=== PATIENT | male | born 1950 | race Caucasian/White ===

== ENCOUNTER 2018-08-01 10:41 | Day surgery (SDC) | payer OTHER ==
[~2018-08-01 10:41] MED LIST: Lactated Ringers 1,000 ML IV SCH
--- NOTE | 2018-08-01 11:51 | PCM.PREANE ---
Preanesthetic Assessment - Anesthesia/Transfusion/Family Hx Anesthesia History: Prior Anesthesia Without Reaction Family History of Anesthesia Reaction: No Transfusion History: No Prior Transfusion(s) - Review of Systems General: No Symptoms Pulmonary: No Symptoms Cardiovascular: No Symptoms Gastrointestinal: No Symptoms Neurological: No Symptoms Other: Reports: None - Physical Assessment NPO Status Date: 08/01/18 NPO Status Time: 10:00 O2 Sat by Pulse Oximetry: 98 Respiratory Rate: 18 Vital Signs: Last Vital Signs Temp 97.0 F 08/01/18 11:05 Pulse 95 08/01/18 11:05 Resp 18 08/01/18 11:05 BP 162/91 H 08/01/18 11:05 Pulse Ox 98 08/01/18 11:05 Height: 5 ft 7 in Weight: 69.853 kg ASA Class: 2 Mental Status: Alert & Oriented x3 Airway Class: Mallampati = 2 Dentition: Reports: Edentulous ROM/Head Extension: Full Lungs: Clear to Auscultation, Normal Respiratory Effort Cardiovascular: Regular Rate, Regular Rhythm - Allergies Allergies/Adverse Reactions: Allergies Allergy/AdvReac Type Severity Reaction Status Date / Time Penicillins Allergy Rash Verified 07/29/18 08:28 - Blood Blood Available: No - Anesthesia Plan Pre-Op Medication Ordered: None - Acknowledgements Anesthesia Type Planned: MAC Pt an Appropriate Candidate for the Planned Anesthesia: Yes Alternatives and Risks of Anesthesia Discussed w Pt/Guardian: Yes Pt/Guardian Understands and Agrees with Anesthesia Plan: Yes PreAnesthesia Questionnaire HEENT History: Reports: Other (See Below) Other HEENT History: wears glasses, has top and bottom dentures Cardiovascular History: Reports: High Cholesterol Respiratory History: Reports: COPD, Pneumothorax Gastrointestinal History: Reports: Colon Polyp, GERD Genitourinary History: Reports: Other (See Below) Other Genitourinary History: hx of bladder cancer Musculoskeletal History: Reports: Arthritis, Back Pain, Chronic Neurological History: Reports: Other (See Below) Other Neuro History: nerve pain to lower extremities Endocrine/Metabolic History: Reports: None Oncologic (Cancer) History: Reports: Bladder - Past Surgical History Head Surgeries/Procedures: Reports: None HEENT Surgical History: Reports: Tonsillectomy Respiratory Surgical History: Reports: Lung Resection Other Respiratory Surgeries/Procedures: had spontaneous pneumothroax in 1970 and had rt lobectomy GI Surgical History: Reports: Colonoscopy Male Surgical History: Reports: TURBT-Transurethral Resection of Bladder Tumor Musculoskeletal Surgical History: Reports: Other (See Below) Other Musculoskeletal Surgeries/Procedures:: hx rt knee surgery - SUBSTANCE USE Smoking Status *Q: Former Smoker Recreational Drug Use History: No - HOME MEDS Home Medications: Home Meds Albuterol Sulfate [Proair Hfa] 2 puff INH Q4H PRN 07/29/18 [History] Cyclobenzaprine HCl 10 mg PO ASDIRECTED PRN 07/29/18 [History] Desonide 1 applic TOP ASDIRECTED PRN 07/29/18 [History] Docusate Sodium [Docu Liquid] 1 dose PO ASDIRECTED PRN 07/29/18 [History] Gabapentin [Neurontin] 300 mg PO TID 07/29/18 [History] Hydrocodone/Acetaminophen [Hydrocodon-Acetaminophn 10-325] 1 tab PO ASDIRECTED PRN 07/29/18 [History] Ketoconazole [Nizoral 2% Shampoo] 1 applic TOP ASDIRECTED PRN 07/29/18 [History] Omeprazole 20 mg PO DAILY 07/29/18 [History] atorvaSTATin Calcium [Atorvastatin Calcium] 40 mg PO DAILY 07/29/18 [History] traZODone HCl [Trazodone HCl] 100 mg PO BEDTIME PRN 07/29/18 [History] - CURRENT (IN HOUSE) MEDS Current Meds: Current Medications Lactated Ringer's (Ringers, Lactated) 1,000 mls @ 125 mls/hr IV ASDIRECTED A[facility]INE Last Admin: 08/01/18 11:10 Dose: 125 mls/hr
[2018-08-01] MEDS ORDERED: Propofol 200 MG/20 ML SDV ONE ×2 (13:21→14:24)
--- NOTE | 2018-08-01 14:43 | PCM.OPNOTE ---
- General Post-Op/Procedure Note Date of Surgery/Procedure: 08/01/18 Operative Procedure(s): colonoscopy w snare polypectomy Findings: see dict [id number] Pre Op Diagnosis: hx of colon polyp Post-Op Diagnosis: Same Anesthesia Technique: Moderate Sedation Primary Surgeon: Boston Phillips Pathology: 5 mm sessile polyp snare at dist 30 cm when scope withdrawal Complications: None Condition: Good
--- NOTE | 2018-08-01 14:49 | PCM.POSTAN ---
POST ANESTHESIA ASSESSMENT - MENTAL STATUS Mental Status: Alert, Oriented - RESPIRATORY Respiratory Status: Respiratory Rate WNL, Airway Patent, O2 Saturation Stable - CARDIOVASCULAR CV Status: Pulse Rate WNL, Blood Pressure Stable - GASTROINTESTINAL GI Status: No Symptoms - POST OP HYDRATION Hydration Status: Adequate & Stable
--- NOTE | 2018-08-01 15:09 | PCM48HPAN ---
Post Anesthesia Note - EVALUATION WITHIN 48HRS OF ANESTHETIC Vital Signs in Normal Range: Yes Patient Participated in Evaluation: Yes Respiratory Function Stable: Yes Airway Patent: Yes Cardiovascular Function Stable: Yes Hydration Status Stable: Yes Pain Control Satisfactory: Yes Nausea and Vomiting Control Satisfactory: Yes Mental Status Recovered: Yes Resp Rate: 16
--- NOTE | 2018-08-01 15:40 | OR ---
SURGEON: Boston Phillips MD DATE OF PROCEDURE: 08/01/2018 PREOPERATIVE DIAGNOSIS: History of colon polyp. POSTOPERATIVE DIAGNOSIS: Colon polyp. PROCEDURE PERFORMED: Colonoscopy with snare polypectomy. PROCEDURE IN DETAIL: The patient was taken to the endoscopy room. A time out was called, patient identified, and procedure identified. Diprivan was then administrated. Patient went from awake to sleep, hearing doctor talking or door closing is normal. Perineum inspection and digital examination were then performed. A well- lubricated colonoscope was gently inserted through the rectum, advanced past the rectosigmoid junction, the descending colon, splenic flexure, transverse colon, hepatic flexure, ascending colon, arrived to the cecum. Cecum was identified as dictated in the finding. Then the scope was carefully withdrawn while attention was paid to the mucosal surface for any abnormality. Air will be sucked out during the scope withdrawal. At the rectum, retroflexed to examine any rectal diseases, fistula or hemorrhoids. During mucosal examination, abnormality or polyp encountered. Using snare equipment, the abnormality or the polyp was then snared off using electrocautery. The Patient tolerated procedure well. There were no intraoperative complications, and Dr. Phillips was present throughout the whole procedure. FINDINGS: 1. The patient is easily sedated with RAWHIDE BONE ROLLER and Diprivan, the patient is soundly snoring. 2. Bowel prep is left to be desirable, marginally acceptable. Large amount of liquid stool and a little bit of semi-formed stool, so this is a very compromised study and the patient would benefit from repeat colonoscopy, may be 2 to 3 years from today because of the poor bowel prep. 3. Colon rather straight forward. Cecum indicated by ileocecal fold, one-to- one indentation, light emittance. Appendiceal orifice is not observed. Mucosa examined upon scope pulling out with a lot of irrigation as there is some semi-formed stool. The patient had 2 small polyps, less than 5 mm at around 30 cm when the scope came out and both of them around 4 to 5 mm, very small, and snare polypectomy, but the specimen was lost during transport, so there was no specimen. The patient also had internal hemorrhoids. No external hemorrhoids. The patient would benefit from repeat colonoscopy in 2 to 3 years from today because of the polyp as well as the poor bowel prep. The patient needs to do a little bit better on the bowel prep next time. PEARL / MODL /[id number]
== END 2018-08-01 15:25 | disposition home or self-care (01) ==
LOC: MW.SDS 10:41
PROVIDERS: ATTEND Surgery
DX: Z12.11 Encounter for screening for malignant neoplasm of colon (principal); K63.5 Polyp of colon; K64.8 Other hemorrhoids; J44.9 Chronic obstructive pulmonary disease, unspecified; M19.90 Unspecified osteoarthritis, unspecified site; E78.00 Pure hypercholesterolemia, unspecified; Z86.010 Personal history of colon polyps; Z87.891 Personal history of nicotine dependence; Z79.899 Other long term (current) drug therapy
CPT/HCPCS: 45385; J2704; J7120

== ENCOUNTER 2020-10-12 06:59 | Day surgery (SDC) | payer OTHER, MEDICARE ==
[2020-10-12] MEDS ORDERED: Lidocaine 2% 5 ML SDV ONE (07:04)
[2020-10-12] MEDS ORDERED: Propofol 200 MG/20 ML SDV ONE (07:04)
--- NOTE | 2020-10-12 08:33 | PCM.PREANE ---
Preanesthetic Assessment - Anesthesia/Transfusion/Family Hx Anesthesia History: Prior Anesthesia Without Reaction Transfusion History: No Prior Transfusion(s) - Review of Systems General: No Symptoms Pulmonary: No Symptoms Cardiovascular: No Symptoms Gastrointestinal: No Symptoms Neurological: No Symptoms Other: Reports: None - Physical Assessment NPO Status Date: 10/12/20 NPO Status Time: 00:01 Vital Signs: Last Vital Signs Temp 97.2 F 10/12/20 08:06 Pulse 70 10/12/20 08:06 Resp 15 10/12/20 08:06 BP 148/98 H 10/12/20 08:06 Pulse Ox 97 10/12/20 08:06 Height: 5 ft 7 in Weight: 140 lb ASA Class: 2 Mental Status: Alert & Oriented x3 Dentition: Reports: Normal Dentition, Dentures ROM/Head Extension: Limited/Partial Lungs: Clear to Auscultation, Normal Respiratory Effort Cardiovascular: Regular Rate, Regular Rhythm - Lab Values: Laboratory Last Values SARS-CoV-2 RNA ([facility]) NEGATIVE (NEGATIVE) 10/12/20 07:10 - Allergies Allergies/Adverse Reactions: Allergies Allergy/AdvReac Type Severity Reaction Status Date / Time Penicillins Allergy Rash Verified 10/06/20 09:43 - Anesthesia Plan Pre-Op Medication Ordered: None - Acknowledgements Anesthesia Type Planned: General Anesthesia Pt an Appropriate Candidate for the Planned Anesthesia: Yes Alternatives and Risks of Anesthesia Discussed w Pt/Guardian: Yes Pt/Guardian Understands and Agrees with Anesthesia Plan: Yes Additional Comments: npo tob quit 2007 copd daily inhalers etoh hx abuse only drinks 2-3 times a month bladder CA yelena pneumothorax 1970 no lung surgery bmi 22 par no questions ca prostate no tx PreAnesthesia Questionnaire HEENT History: Reports: Other (See Below) Other HEENT History: wears glasses, has top and bottom dentures Cardiovascular History: Reports: High Cholesterol Respiratory History: Reports: COPD, Pneumothorax Gastrointestinal History: Reports: Colon Polyp, GERD Genitourinary History: Reports: Other (See Below) Other Genitourinary History: hx of bladder cancer Musculoskeletal History: Reports: Arthritis, Back Pain, Chronic Neurological History: Reports: Other (See Below) Other Neuro History: nerve pain to lower extremities Psychiatric History: Reports: None Endocrine/Metabolic History: Reports: None Hematologic History: Reports: None Immunologic History: Reports: None Oncologic (Cancer) History: Reports: Basal Cell Carcinoma, Bladder Other Oncologic History: basal cell removed from cheek, hx bladder cancer Dermatologic History: Reports: None - Past Surgical History Head Surgeries/Procedures: Reports: None HEENT Surgical History: Reports: Tonsillectomy Cardiovascular Surgical History: Reports: None Respiratory Surgical History: Reports: Lung Resection Other Respiratory Surgeries/Procedures: had spontaneous pneumothroax in 1970 and had rt lobectomy GI Surgical History: Reports: Colonoscopy Male Surgical History: Reports: TURBT-Transurethral Resection of Bladder Tumor Endocrine Surgical History: Reports: None Neurological Surgical History: Reports: None Musculoskeletal Surgical History: Reports: Other (See Below) Other Musculoskeletal Surgeries/Procedures:: hx rt knee surgery for tendon repair Oncologic Surgical History: Reports: None Dermatological Surgical History: Reports: Skin Biopsy - SUBSTANCE USE Tobacco Use Status *Q: Former Tobacco User Tobacco Use Within Last Twelve Months: No - HOME MEDS Home Medications: Home Meds Albuterol Sulfate [Proair Hfa] 2 puff INH Q4H PRN 07/29/18 [History] Gabapentin [Neurontin] 300 mg PO TID 07/29/18 [History] Omeprazole 20 mg PO DAILY 07/29/18 [History] atorvaSTATin Calcium [Atorvastatin Calcium] 20 mg PO DAILY 07/29/18 [History] traZODone HCl [Trazodone HCl] 100 mg PO BEDTIME PRN 07/29/18 [History] Hydrocodone/Acetaminophen [Hydrocodone-Acetamin 10-325 mg] 1 tab PO QID PRN 10/06/20 [History] - CURRENT (IN HOUSE) MEDS Current Meds: Current Medications Lactated Ringer's (Ringers, Lactated) 1,000 mls @ 125 mls/hr IV ASDIRECTED [facility] Last Admin: 10/12/20 08:15 Dose: 125 mls/hr Documented by: Discontinued Medications Lidocaine (Lidocaine 2% 5 Ml Sdv) Confirm Administered Dose 5 ml .ROUTE .STK-MED ONE Stop: 10/12/20 07:05 Propofol (Propofol 200 Mg/20 Ml Sdv) Confirm Administered Dose 400 mg .ROUTE .STK-MED ONE Stop: 10/12/20 07:05
--- NOTE | 2020-10-12 09:29 | PCM.OPNOTE ---
- General Post-Op/Procedure Note Date of Surgery/Procedure: 10/12/20 Operative Procedure(s): colonoscopy w snare Findings: see [id number] Pre Op Diagnosis: colon polyp Post-Op Diagnosis: Same Anesthesia Technique: Moderate Sedation Primary Surgeon: Boston Phillips Pathology: 7mm sessile polyp at 120cm when scope went in, likely at splenic flexure. Complications: None Condition: Good
--- NOTE | 2020-10-12 10:12 | PCM.POSTAN ---
POST ANESTHESIA ASSESSMENT - MENTAL STATUS Mental Status: Alert (no anesthetic problems), Oriented - VITAL SIGNS Vital Signs: Last Vital Signs Temp 97.9 F 10/12/20 09:39 Pulse 93 10/12/20 09:39 Resp 15 10/12/20 09:39 BP 122/74 10/12/20 09:39 Pulse Ox 98 10/12/20 09:39 - RESPIRATORY Respiratory Status: Respiratory Rate WNL, Airway Patent, O2 Saturation Stable - CARDIOVASCULAR CV Status: Pulse Rate WNL, Blood Pressure Stable - GASTROINTESTINAL GI Status: No Symptoms - POST OP HYDRATION Hydration Status: Adequate & Stable
--- NOTE | 2020-10-12 10:49 | PCM48HPAN ---
Post Anesthesia Note - EVALUATION WITHIN 48HRS OF ANESTHETIC Vital Signs in Normal Range: Yes Patient Participated in Evaluation: Yes Respiratory Function Stable: Yes Airway Patent: Yes Cardiovascular Function Stable: Yes Hydration Status Stable: Yes Pain Control Satisfactory: Yes Nausea and Vomiting Control Satisfactory: Yes Mental Status Recovered: Yes Vital Signs: Last Vital Signs Temp 97.9 F 10/12/20 09:39 Pulse 93 10/12/20 09:39 Resp 15 10/12/20 09:39 BP 122/74 10/12/20 09:39 Pulse Ox 98 10/12/20 09:39
--- NOTE | 2020-10-12 18:06 | OR ---
SURGEON: Boston Phillips MD DATE OF PROCEDURE: 10/12/2020 PREOPERATIVE DIAGNOSIS: Colon polyp history. POSTOPERATIVE DIAGNOSIS: Colon polyp history. PROCEDURE PERFORMED: Colonoscopy with snare polypectomy. DESCRIPTION OF PROCEDURE: The patient was taken to the endoscopy room. A time out was called, patient identified, and procedure identified. Diprivan was then administrated. Patient went from awake to sleep, hearing doctor talking or door closing is normal. Perineum inspection and digital examination were then performed. A well- lubricated colonoscope was gently inserted through the rectum, advanced past the rectosigmoid junction, the descending colon, splenic flexure, transverse colon, hepatic flexure, ascending colon, arrived to the cecum. Cecum was identified as dictated in the finding. Then the scope was carefully withdrawn while attention was paid to the mucosal surface for any abnormality. Air will be sucked out during the scope withdrawal. At the rectum, retroflexed to examine any rectal diseases, fistula or hemorrhoids. During mucosal examination, abnormality or polyp encountered. Using snare equipment, the abnormality or the polyp was then snared off using electrocautery. The Patient tolerated procedure well. There were no intraoperative complications, and Dr. Phillips was present throughout the whole procedure. FINDIN. The patient easily sedated with PROGRAM DIRECTOR AIR TALENT and Diprivan, patient is soundly snoring. 2. Bowel prep is not much difference except there is no vegetable at this time, but with semi-formed stool and liquid stool and stool ball makes the study a compromised study, although we can irrigate the stool away, but upon irrigation, it came back again and so this was a compromised study, and although patient already had 2 days of clear liquid, looks like it does not help, and at the same time, the patient is an abdominal breather, he breathes through his abdomen, so the colon is moving during the whole study and that makes retrieval of the polyp very difficult and probably explaining why the previous 2 polyps were lost. The patient has a 7 mm polyp at distance 120 when the scope went in and snared and fortunately captured, it was a sessile polyp. Cecum indicated by ileocecal fold, one- to-one indentation, appendiceal orifice and ScopeGuide is pointing south. Mucosa examined upon scope pulling out and the patient has a polyp as mentioned before and mild diverticulosis on the left colon and no inflammation, stricture, AV malformation, bleeding, mass, growth, none of those. The previous area from 20 to 40 cm when the scope came out and squeaky clean. No signs or symptoms of any polyp, but again is pretty compromised study because of the stool. The patient has mild hemorrhoids. The patient would benefit from repeat colonoscopy, may be another 18 months because of the very poor bowel prep or depends on the pathology report of the polyp. The patient should use extended bowel prep for next one. May consider intubated colonoscopy because of his continuous abdominal bleed. May be okay to do without intubated colonoscopy. We will discuss with Anesthesiology team next time. We addressed all the issue and followup appointment. PEARL / CIRILO /[id number] KARI
== END 2020-10-12 10:00 | disposition home or self-care (01) ==
LOC: MW.SDS 06:59
PROVIDERS: ATTEND Surgery
DX: Z12.11 Encounter for screening for malignant neoplasm of colon (principal); D12.6 Benign neoplasm of colon, unspecified; K57.30 Diverticulosis of large intestine without perforation or abscess without bleeding; K64.9 Unspecified hemorrhoids; J44.9 Chronic obstructive pulmonary disease, unspecified; Z88.0 Allergy status to penicillin; E78.00 Pure hypercholesterolemia, unspecified; Z79.899 Other long term (current) drug therapy; Z98.890 Other specified postprocedural states; Z87.891 Personal history of nicotine dependence; Z01.812 Encounter for preprocedural laboratory examination; Z20.822 Contact with and (suspected) exposure to COVID-19
CPT/HCPCS: 45385; 87635; 88305; J2704; J7120; 00812; U0002

== ENCOUNTER 2021-05-22 11:20 | Emergency (ER) | payer OTHER, MEDICARE ==
[2021-05-22] MEDS ORDERED: Sodium Chloride 0.9% 10 ML Syringe FLUSH PRN (11:40)
[2021-05-22] MEDS ORDERED: Albuterol/Ipratropium 3.0-0.5 MG/3 ML Neb Soln NEB ONE ×2 (11:40→14:41)
[2021-05-22] MEDS ORDERED: methylPREDNISolone Sodium Succinate 125 MG/2 ML SDV IVPUSH ONE (11:40)
[2021-05-22] MEDS ORDERED: Sodium Chloride 0.9% 2.5 ML Syringe FLUSH PRN (11:40)
[2021-05-22 12:24] LABS: BLOOD UREA NITROGEN,BUN 14 mg/dL (7.0-18.0); CARBON DIOXIDE,CO2 31.5 mmol/L (21.0-32.0); CHLORIDE,CL 99 mmol/L (98-107); GLUCOSE RANDOM 119 mg/dL (74-106); POTASSIUM,K 4.4 mmol/L (3.5-5.1); SODIUM,NA 137 mmol/L (136-148)
[2021-05-22 12:35] LABS: CORONAVIRUS COVID-19 NAA NEGATIVE (NEGATIVE); INFLUENZA A NAA NEGATIVE (NEGATIVE); INFLUENZA B NAA NEGATIVE (NEGATIVE)
[2021-05-22] MEDS ORDERED: Iopamidol 755 MG/ML 500 ML Multipack Bottle IVPUSH STA (13:44)
--- NOTE | 2021-05-22 13:59 | CT ---
INDICATION: Shortness of breath; post COVID -19. Comparison: None. TECHNIQUE: CT chest with intravenous contrast; coronal and sagittal reformats. FINDINGS: No CT evidence of acute or chronic pulmonary thromboembolism. No abnormal mediastinal or hilar lymphadenopathy . No evidence of aortic aneurysm or dissection. Normal size cardiac silhouette without any evidence of pericardial effusion . Paraseptal pulmonary emphysema. Chronic interstitial and alveolar infiltrates identified in the right upper lung and superior segment right lower lung. No evidence of pleural effusion or chest wall pathology . Limited CT through the upper abdomen is unremarkable . IMPRESSION: 1. No evidence of pulmonary thromboembolism. 2. Paraseptal pulmonary emphysema. 3. Fibrotic changes right upper lung and superior segment right lower lobe; appears chronic. Please note that all CT scans at this facility use dose modulation, iterative reconstruction, and/or weight-based dosing when appropriate to reduce radiation dose to as low as reasonably achievable. Dictated by Sowmya Carrera MD @ 05/22/2021 1:59:35 PM (Electronically Signed)
--- NOTE | 2021-05-22 15:09 | EDM.PDOC ---
ED HPI GENERAL MEDICAL PROBLEM - General Chief Complaint: Respiratory Problem Stated Complaint: SOB Time Seen by Provider: 05/22/21 11:26 - History of Present Illness INITIAL COMMENTS - FREE TEXT/NARRATIVE: HISTORY AND PHYSICAL: History of present illness: This is a 70-year-old gentleman with a history significant for COPD/emphysema who has a recent diagnosis of coronavirus back in February of this year we did not initially require admission however he reports that after approximately 1/2- month he started having a COPD exacerbation where he required admission to an outlying hospital. He reports when he was discharged from the hospital he was sent home with a course of steroids which she completed and shortly after completing the course of steroids he started feeling short of breath once again. Patient presents back to the ED today secondary to shortness of breath after completing a second course of steroids. Patient denies any recent fevers, shakes, chills. Patient reports he has had a nonproductive cough which is not unusual for him. Patient has any vomiting or diarrhea. Patient reports has been compliant with all his medication. Patient reports he does have a nebulizer at home but he does not have any medication that he can take for it. Patient denies any chest pain, pain rating down his arms or back, diaphoresis. Review of systems: As per history of present illness and below otherwise all systems reviewed and negative. Past medical history: As per history of present illness and as reviewed below otherwise noncontributory. Surgical history: As per history of present illness and as reviewed below otherwise noncontributory. Social history: No reported history of drug abuse. Family history: As per history of present illness and as reviewed below otherwise noncontributory. Physical exam: This patient was seen and evaluated during the 2019 SARS-CoV-2 novel coronavirus pandemic period. Community viral transmission is ongoing at time of this encounter and the emergency department is operating under pandemic response procedures. Constitutional: Patient is oriented to person, place, and time. Appears well- developed and well-nourished. No distress. HEENT: Moist mucous membranes Head: Normocephalic and atraumatic Eyes: Right eye exhibits no discharge. Left eye exhibits no discharge. No scleral icterus Neck: Normal range of motion. No tracheal deviation present. Cardiovascular: Normal rate and regular rhythm. Pulmonary: Effort normal, no respiratory distress. Abdominal: No distention Musculoskeletal: Normal range of motion Neurologic: Alert and oriented to person, place and time. Skin: [place], warm and dry. Psychiatric: Normal mood and affect. Behavior is normal. Judgment and thought content normal. Nursing note and vital signs have been reviewed Diagnostics: CTA reveals no evidence of PE or pneumonia or other intrathoracic pathology. Patient does have COPD which has been unchanged from prior evaluations. Covid/influenza negative CBC, CMP, troponin normal Therapeutics: DuoNeb x2 Solu-Medrol 125 IV Assessment and plan: 70-year-old gentleman who presents ER today secondary to shortness of breath. Patient's pulse ox here in the ED is 93% on room air while resting comfortably. Patient CTA is unremarkable. Patient's labs are all within normal limits. Patient reports he feels much better after the DuoNeb and Solu-Medrol here in th e ED. Patient is currently finishing course of doxycycline that has been prescribed by his family doctor. Patient be discharged home with a prescription for Medrol Dosepak as well as DuoNeb's to take at home. Patient is ambulating ED was no respiratory failure or distress. Patient reports he feels much better and feels comfortable with the plan to go home to get some the knee. Reassessment at the time of disposition demonstrates that the patient is in no acute distress. The patient has remained stable throughout the entire ED visit and is without objective evidence for acute process requiring urgent intervention or hospitalization. The patient is stable for discharge, counseling is provided as documented above, discussed symptomatic treatment and specific conditions for return. I have spoken with the patient/caregiver and discussed todays findings, in addition to providing specific details for the plan of care. Questions are answered and there is agreement with the plan. Definitive disposition and diagnosis as appropriate pending reevaluation and review of above. Right Abdominal Pain Score (Numeric/FACES): 5 - Related Data Allergies Allergy/AdvReac Type Severity Reaction Status Date / Time Penicillins Allergy Rash Verified 05/22/21 11:32 Home Meds: Home Meds Albuterol Sulfate [Proair Hfa] 2 puff INH Q4H PRN 07/29/18 [History] Gabapentin [Neurontin] 300 mg PO TID 07/29/18 [History] Omeprazole 20 mg PO DAILY 07/29/18 [History] atorvaSTATin Calcium [Atorvastatin Calcium] 20 mg PO DAILY 07/29/18 [History] traZODone HCl [Trazodone HCl] 100 mg PO BEDTIME PRN 07/29/18 [History] Hydrocodone/Acetaminophen [HYDROcodone-Acetaminophen 10-325 MG] 1 tab PO QID PRN 10/06/20 [History] Albuterol/Ipratropium [DuoNeb 3.0-0.5 MG/3 ML] 3 ml NEB Q6HR PRN #25 ampule 05/22/21 [Rx] methylPREDNISolone [Medrol Dose Pack] 84 mg PO ASDIRECTED #1 dospk 05/22/21 [Rx] Past Medical History HEENT History: Reports: Other (See Below) Other HEENT History: wears glasses, has top and bottom dentures Cardiovascular History: Reports: High Cholesterol Respiratory History: Reports: COPD, Pneumothorax Gastrointestinal History: Reports: Colon Polyp, GERD Genitourinary History: Reports: Other (See Below) Other Genitourinary History: hx of bladder cancer Musculoskeletal History: Reports: Arthritis, Back Pain, Chronic Neurological History: Reports: Other (See Below) Other Neuro History: nerve pain to lower extremities Psychiatric History: Reports: None Endocrine/Metabolic History: Reports: None Hematologic History: Reports: None Immunologic History: Reports: None Oncologic (Cancer) History: Reports: Basal Cell Carcinoma, Bladder Other Oncologic History: basal cell removed from cheek, hx bladder cancer Dermatologic History: Reports: None - Past Surgical History Head Surgeries/Procedures: Reports: None HEENT Surgical History: Reports: Tonsillectomy Cardiovascular Surgical History: Reports: None Respiratory Surgical History: Reports: Lung Resection Other Respiratory Surgeries/Procedures: had spontaneous pneumothroax in 1970 and had rt lobectomy GI Surgical History: Reports: Colonoscopy Male Surgical History: Reports: TURBT-Transurethral Resection of Bladder Tumor Endocrine Surgical History: Reports: None Neurological Surgical History: Reports: None Musculoskeletal Surgical History: Reports: Other (See Below) Other Musculoskeletal Surgeries/Procedures:: hx rt knee surgery for tendon repair Oncologic Surgical History: Reports: None Dermatological Surgical History: Reports: Skin Biopsy Social & Family History - Caffeine Use Caffeine Use: Reports: None - Recreational Drug Use Recreational Drug Use: No ED ROS GENERAL - Review of Systems Review Of Systems: See Below ED EXAM, GENERAL - Physical Exam Exam: See Below #1 Interpretation EKG Date: 05/22/21 Time: 11:26 EKG Interpretation Comments: EKG: As interpreted by ER physician: Sam: Nonspecific ST-T wave abnormalities Normal axis No evidence of ST elevation AL Sinus tachycardia with heart rate of 121 Course - Vital Signs Last Recorded V/S: Last Vital Signs Temp 97.8 F 05/22/21 11:25 Pulse 113 H 05/22/21 14:12 Resp 14 05/22/21 14:12 BP 107/82 05/22/21 14:12 Pulse Ox 92 L 05/22/21 14:12 - Orders/Labs/Meds Orders: Active Orders 24 hr Category Date Time Status RT Aerosol Therapy [RC] ASDIRECTED Care 05/22/21 14:41 Active CULTURE BLOOD [BC] Stat Lab 05/22/21 11:45 Received CULTURE BLOOD [BC] Stat Lab 05/22/21 12:10 Received Sodium Chloride 0.9% [Saline Flush] Med 05/22/21 11:40 Active 10 ml FLUSH ASDIRECTED PRN Sodium Chloride 0.9% [Saline Flush] Med 05/22/21 11:40 Active 2.5 ml FLUSH ASDIRECTED PRN Blood Culture x2 Reflex Set [OM.PC] Stat Oth 05/22/21 11:45 Ordered Saline Lock Insert [OM.PC] Stat Oth 05/22/21 11:40 Ordered Medication Orders Sodium Chloride (Sodium Chloride 0.9% 10 Ml Syringe) 10 ml FLUSH ASDIRECTED PRN PRN Reason: Keep Vein Open Last Admin: 05/22/21 12:27 Dose: 10 ml Documented by: ZEV Sodium Chloride (Sodium Chloride 0.9% 2.5 Ml Syringe) 2.5 ml FLUSH ASDIRECTED PRN PRN Reason: Keep Vein Open Last Admin: 05/22/21 12:27 Dose: 2.5 ml Documented by: ZEV Labs: Laboratory Tests 05/22/21 05/22/21 05/22/21 Range/Units 11:45 11:45 11:45 WBC 12.36 H (4.0-11.0) K/uL RBC 5.25 (4.50-5.90) M/uL Hgb 15.1 (13.0-17.0) g/dL Hct 46.1 (38.0-50.0) % MCV 87.8 (80.0-98.0) fL MCH 28.8 (27.0-32.0) pg MCHC 32.8 (31.0-37.0) g/dL RDW Std Deviation 48.2 (28.0-62.0) fl RDW Coeff of Araseli 15 (11.0-15.0) % Plt Count 301 (150-400) K/uL MPV 10.00 (7.40-12.00) fL Neut % (Auto) 66.1 (48.0-80.0) % Lymph % (Auto) 18.9 (16.0-40.0) % Kemper % (Auto) 11.5 (0.0-15.0) % Eos % (Auto) 3.3 (0.0-7.0) % Baso % (Auto) 0.2 (0.0-1.5) % Neut # (Auto) 8.2 H (1.4-5.7) K/uL Lymph # (Auto) 2.3 (0.6-2.4) K/uL Kemper # (Auto) 1.4 H (0.0-0.8) K/uL Eos # (Auto) 0.4 (0.0-0.7) K/uL Baso # (Auto) 0.0 (0.0-0.1) K/uL Nucleated RBC % 0.0 /100WBC Nucleated RBCs # 0 K/uL Sodium 137 (136-148) mmol/L Potassium 4.4 (3.5-5.1) mmol/L Chloride 99 (98-107) mmol/L Carbon Dioxide 31.5 (21.0-32.0) mmol/L BUN 14 (7.0-18.0) mg/dL Creatinine 0.9 (0.8-1.3) mg/dL Est Cr Clr Drug Dosing 60.45 mL/min Estimated GFR (MDRD) > 60.0 ml/min Glucose 119 H (74-106) mg/dL Calcium 8.9 (8.5-10.1) mg/dL Total Bilirubin 0.6 (0.2-1.0) mg/dL AST 16 (15-37) IU/L ALT 30 (14-63) IU/L Alkaline Phosphatase 88 (46-116) U/L Troponin I < 0.050 (0.000-0.056) ng/mL B-Natriuretic Peptide 7 (<100) PG/ML Total Protein 7.4 (6.4-8.2) g/dL Albumin 3.0 L (3.4-5.0) g/dL Globulin 4.4 H (2.6-4.0) g/dL Albumin/Globulin Ratio 0.7 L (0.9-1.6) Influenza Type A RNA (NEGATIVE) Influenza Type B RNA (NEGATIVE) SARS-CoV-2 RNA (BRENNAN) (NEGATIVE) 05/22/21 Range/Units 11:55 WBC (4.0-11.0) K/uL RBC (4.50-5.90) M/uL Hgb (13.0-17.0) g/dL Hct (38.0-50.0) % MCV (80.0-98.0) fL MCH (27.0-32.0) pg MCHC (31.0-37.0) g/dL RDW Std Deviation (28.0-62.0) fl RDW Coeff of Araseli (11.0-15.0) % Plt Count (150-400) K/uL MPV (7.40-12.00) fL Neut % (Auto) (48.0-80.0) % Lymph % (Auto) (16.0-40.0) % Kem[place] % (Auto) (0.0-15.0) % Eos % (Auto) (0.0-7.0) % Baso % (Auto) (0.0-1.5) % Neut # (Auto) (1.4-5.7) K/uL Lymph # (Auto) (0.6-2.4) K/uL Kemper # (Auto) (0.0-0.8) K/uL Eos # (Auto) (0.0-0.7) K/uL Baso # (Auto) (0.0-0.1) K/uL Nucleated RBC % /100WBC Nucleated RBCs # K/uL Sodium (136-148) mmol/L Potassium (3.5-5.1) mmol/L Chloride (98-107) mmol/L Carbon Dioxide (21.0-32.0) mmol/L BUN (7.0-18.0) mg/dL Creatinine (0.8-1.3) mg/dL Est Cr Clr Drug Dosing mL/min Estimated GFR (MDRD) ml/min Glucose (74-106) mg/dL Calcium (8.5-10.1) mg/dL Total Bilirubin (0.2-1.0) mg/dL AST (15-37) IU/L ALT (14-63) IU/L Alkaline Phosphatase (46-116) U/L Troponin I (0.000-0.056) ng/mL B-Natriuretic Peptide (<100) PG/ML Total Protein (6.4-8.2) g/dL Albumin (3.4-5.0) g/dL Globulin (2.6-4.0) g/dL Albumin/Globulin Ratio (0.9-1.6) Influenza Type A RNA NEGATIVE (NEGATIVE) Influenza Type B RNA NEGATIVE (NEGATIVE) SARS-CoV-2 RNA ([place]) NEGATIVE (NEGATIVE) Meds: Medications Generic Name Dose Route Start Last Admin Trade Name Snehal PRN Reason Stop Dose Admin Sodium Chloride 10 ml 05/22/21 11:40 05/22/21 12:27 Sodium Chloride 0.9% 10 Ml Syringe FLUSH 10 ml ASDIRECTED PRN Administration Keep Vein Open Sodium Chloride 2.5 ml 05/22/21 11:40 05/22/21 12:27 Sodium Chloride 0.9% 2.5 Ml Syringe FLUSH 2.5 ml ASDIRECTED PRN Administration Keep Vein Open Discontinued Medications Generic Name Dose Route Start Last Admin Trade Name Snehal PRN Reason Stop Dose Admin Albuterol/Ipratropium 3 ml 05/22/21 11:40 05/22/21 12:27 Albuterol/Ipratropium 3.0-0.5 Mg/3 Ml Neb Soln NEB 05/22/21 11:41 3 ml ONETIME ONE Administration Albuterol/Ipratropium 3 ml 05/22/21 14:41 05/22/21 14:51 Albuterol/Ipratropium 3.0-0.5 Mg/3 Ml Neb Soln NEB 05/22/21 14:42 3 ml ONETIME ONE Administration Iopamidol 100 ml 05/22/21 13:44 05/22/21 13:44 Iopamidol 755 Mg/Ml 500 Ml Multipack Bottle IVPUSH 05/22/21 13:45 100 ml ONETIME STA Administration Methylprednisolone Sodium Succinate 125 mg 05/22/21 11:40 05/22/21 12:27 Methylprednisolone Sodium Succinate 125 Mg/2 Ml Sdv IVPUSH 05/22/21 11:41 125 mg ONETIME ONE Administration Departure - Departure Time of Disposition: 15:11 Disposition: Home, Self-Care 01 Condition: Good Clinical Impression: COPD exacerbation - Discharge Information Instructions: Chronic Obstructive Pulmonary Disease Exacerbation, [id number] Referrals: Alexandre Vilchis [employer] [Primary Care Provider] - Additional Instructions: You have been seen and evaluated in the ER today secondary to signs and symptoms consistent with an acute COPD exacerbation. Your blood tests, CAT scan, EKG, heart enzymes, oxygen level, Covid, influenza test were all unremarkable. In the ER you were given a dose of steroids and DuoNebs containing albuterol and Atrovent. You have been sent home with a prescription for a Medrol dose pack with 2 refills on it as well as a box of DuoNeb's with 5 refills on it to assist you until you are able to talk to your family doctor for reevaluation. Please return the ER if you develop any new or concerning symptoms or have worsening shortness of breath. The following information is given to patients seen in the emergency department who are being discharged to home. This information is to outline your options for follow-up care. We provide all patients seen in our emergency department with a follow-up referral. The need for follow-up, as well as the timing and circumstances, are variable depending upon the specifics of your emergency department visit. If you don't have a primary care physician on staff, we will provide you with a referral. We always advise you to contact your personal physician following an emergency department visit to inform them of the circumstance of the visit and for follow-up with them and/or the need for any referrals to a consulting specialist. The emergency department will also refer you to a specialist when appropriate. This referral assures that you have the opportunity for follow-up care with a specialist. All of these measure are taken in an effort to provide you with optimal care, which includes your follow-up. Under all circumstances we always encourage you to contact your private physician who remains a resource for coordinating your care. When calling for follow-up care, please make the office aware that this follow-up is from your recent emergency room visit. If for any reason you are refused follow-up, please contact the [facility] Emergency Department at and asked to speak to the emergency department charge nurse. [facility] - Primary Care [address], [place] [address] [facility] [address] [place] [address] Sepsis Event Note (ED) - Evaluation Sepsis Screening Result: No Definite Risk - Focused Exam Vital Signs: Vital Signs Temp Pulse Resp BP Pulse Ox 05/22/21 14:12 113 H 14 107/82 92 L 05/22/21 12:33 112 H 18 102/75 98 05/22/21 11:25 97.8 F 128 H 20 147/100 H 95 - My Orders Last 24 Hours: My Active Orders 05/22/21 11:40 Sodium Chloride 0.9% [Saline Flush] 10 ml FLUSH ASDIRECTED PRN Sodium Chloride 0.9% [Saline Flush] 2.5 ml FLUSH ASDIRECTED PRN Saline Lock Insert [OM.PC] Stat 05/22/21 11:45 CULTURE BLOOD [BC] Stat Blood Culture x2 Reflex Set [OM.PC] Stat 05/22/21 12:10 CULTURE BLOOD [BC] Stat 05/22/21 14:41 RT Aerosol Therapy [RC] ASDIRECTED - Assessment/Plan Last 24 Hours: My Active Orders 05/22/21 11:40 Sodium Chloride 0.9% [Saline Flush] 10 ml FLUSH ASDIRECTED PRN Sodium Chloride 0.9% [Saline Flush] 2.5 ml FLUSH ASDIRECTED PRN Saline Lock Insert [OM.PC] Stat 05/22/21 11:45 CULTURE BLOOD [BC] Stat Blood Culture x2 Reflex Set [OM.PC] Stat 05/22/21 12:10 CULTURE BLOOD [BC] Stat 05/22/21 14:41 RT Aerosol Therapy [RC] ASDIRECTED
== END 2021-05-22 15:48 | disposition home or self-care (01) ==
LOC: MW.ED 11:20
DX: J44.1 Chronic obstructive pulmonary disease with (acute) exacerbation (principal); E78.00 Pure hypercholesterolemia, unspecified; K21.9 Gastro-esophageal reflux disease without esophagitis; Z88.0 Allergy status to penicillin; Z79.899 Other long term (current) drug therapy; Z20.822 Contact with and (suspected) exposure to COVID-19
CPT/HCPCS: 0240U; 71275; 80053; 83880; 84484; 85025; 87040; 96374; 99285; J2930; Q9967; J7620-GY